=== PATIENT | male | born 1960 | race Caucasian/White ===

== ENCOUNTER 2016-06-07 10:46 | Emergency (ER) | payer OTHER ==
[~2016-06-07] VITALS: Ht 188 cm; Wt 110.0 kg
[~2016-06-07 10:46] MED LIST: BENA25TA8 PO; FENO50TA PO; FOLI1 PO; GABA300 PO; NEUR300C PO; PRIL40CA PO; TAB-TAB PO; THIA100T PO; TOPR100T15 PO
[2016-06-07 10:48] VITALS: BP 193/104; PULSE 81; RESP 14; TEMP 98.3; O2SAT 98
[2016-06-07] MEDS ORDERED: BENA25TA3 PO (11:12)
[2016-06-07] MEDS ORDERED: GABA300C5 PO (11:12)
[2016-06-07] MEDS ORDERED: FENO50TA PO (11:12)
[2016-06-07] MEDS ORDERED: TOPR200T PO (11:12)
[2016-06-07] MEDS ORDERED: SODIUM CHLORIDE 0.9% FLUSH 5 ML FLUSH IVF PRN (11:30)
[2016-06-07] MEDS ORDERED: cloNIDine HCL 0.1 MG TAB PO ONE (11:30)
[2016-06-07 12:10] LABS: AUTOMATED NEUTROPHIL # 2.6 TH/MM3 (1.8-7.7); BASOPHIL % 0.4 % (0.0-2.0); EOSINOPHIL % 0.7 % (0.0-4.0); HEMATOCRIT 42.7 % (39.0-51.0); HEMO FLAGS DIFF FINAL; LYMPH % 19.3 % (9.0-44.0); LYMPHOCYTE # 0.7 TH/MM3 (1.0-4.8); MEAN CELL VOLUME 96.4 FL (80.0-100.0); MEAN CORPUSCULAR HEMOGLOBIN 33.6 PG (27.0-34.0); MEAN CORPUSCULAR HGB CONC 34.9 % (32.0-36.0); MONO % 10.6 % (0.0-8.0); PLATELET COUNT 183 TH/MM3 (150-450); RED BLOOD COUNT 4.43 MIL/MM3 (4.50-5.90); RED CELL DISTRIBUTION WIDTH 12.6 % (11.6-17.2); WHITE BLOOD COUNT 3.7 TH/MM3 (4.0-11.0)
[2016-06-07 12:19] VITALS: BP 176/103; PULSE 78; RESP 18; O2SAT 94; O2SAT 95
[2016-06-07 12:19] LABS: BLOOD, URINE NEG (NEG); GLUCOSE,URINE 70 mg/dL (NEG); KETONE, URINE TRACE mg/dL (NEG); NITRITE,URINE NEG (NEG); PH, URINE 6.5 (5.0-8.5); URINE COLOR YELLOW (YELLW/STRAW)
[2016-06-07 12:20] LABS: APTT (PATIENT) 26.6 SEC (24.3-30.1); INTERNATIONAL NORMALIZED RATIO 0.9 RATIO; PROTHROMBIN TIME - PATIENT 10.2 SEC (9.8-11.6)
[2016-06-07 12:21] LABS: COMMENT (UR) CULT NOT INDICATED; CULTURE IF INDICATED CULT NOT INDICATED
--- NOTE | 2016-06-07 12:24 | PD ---
HPI Chief Complaint: Hypertension Time Seen by Provider: 11:22 Travel History International Travel<30 days: No Contact w/Intl Traveler<30days: No Traveled to known affect area: No History of Present Illness HPI Patient is a 55-year-old male who presents to emergency room with complaints of hypertension. Patient reports that he has history of hypertension, reports that he takes metoprolol 200 mg daily for his blood pressure, reports that he last saw his primary care doctor a few months ago and was started on some thing for his blood pressure. Patient reports that he has been compliant with his medications, patient reports that for the past few days, he has noted that his blood pressure has been high. Patient reports that he does take his blood pressure recent all day and reports that her systolic blood pressure is usually around 150s. Patient reports that when his blood pressures elevated, he feels a pressure behind his eye. Patient reports that he has been feeling pressure behind his left eye for the past few days. Patient denies any vision changes or any blurry vision at this time. Patient denies any chest pain or shortness of breath. Patient denies any recent illness other than a URI. Patient is not on any [id number]-fnoaxyl medications at this time. Patient reports that he has been compliant with his medications. PFSH Past Medical History Asthma: Yes Anxiety: No Depression: No Cardiovascular Problems: Yes High Cholesterol: Yes GERD: Yes Hypertension: Yes Neurologic: Yes (NEUROPATHY) Respiratory: Yes Seizures: Yes () Past Surgical History Other Surgery: Yes (BONE SPURS REMOVED, FATTY TUMOR REMOVAL HEAD) Social History Alcohol Use: Yes (20 BEERS DAILY) Tobacco Use: Yes (CHEW) Substance Use: Yes Allergies-Medications (Allergen,Severity, Reaction): Coded Allergies: No Known Allergies (Unverified , 02/29/16) Reported Meds & Prescriptions Reported Meds & Active Scripts Active Norvasc (Amlodipine Besylate) 5 Mg Tab 5 Mg PO DAILY Reported Toprol XL (Metoprolol Succinate) 200 Mg Tab 200 Mg PO DAILY Gabapentin 300 Mg Cap 300 Mg PO BID Tricor (Fenofibrate) 145 Mg Tab 145 Mg PO DAILY Takw with food. Benadryl Allergy (Diphenhydramine HCl) 25 Mg Tab 25 Mg PO Q6H PRN Review of Systems General / Constitutional: No: Fever Eyes: No: Visual changes HENT: No: Headaches Cardiovascular: No: Chest Pain or Discomfort Respiratory: No: Shortness of Breath Gastrointestinal: No: Abdominal Pain Genitourinary: No: Dysuria Musculoskeletal: No: Pain Skin: No Rash Neurologic: No: Weakness Psychiatric: No: Depression Endocrine: No: Polydipsia Hematologic/Lymphatic: No: Easy Bruising Physical Exam Narrative GENERAL: No acute distress, nontoxic SKIN: Warm and dry. HEAD: Atraumatic. Normocephalic. EYES: Pupils equal and round. No scleral icterus. No injection or drainage. ENT: No nasal bleeding or discharge. Mucous membranes pink and moist. NECK: Trachea midline. No JVD. CARDIOVASCULAR: Regular rate and rhythm. No murmur appreciated. RESPIRATORY: No accessory muscle use. Clear to auscultation. Breath sounds equal bilaterally. GASTROINTESTINAL: Abdomen soft, non-tender, nondistended. Hepatic and splenic margins not palpable. MUSCULOSKELETAL: No obvious deformities. No clubbing. No cyanosis. No edema. NEUROLOGICAL: Awake and alert. No obvious cranial nerve deficits. Motor grossly within normal limits. Normal speech. Cranial nerves II-12 grossly intact with no deficits PSYCHIATRIC: Appropriate mood and affect; insight and judgment normal. Data Data Last Documented VS Vital Signs Date Time Temp Pulse Resp B/P Pulse Ox O2 Delivery O2 Flow Rate FiO2 06/07/16 12:58 77 18 165/99 94 Room Air 06/07/16 10:48 98.3 Orders Electrocardiogram (06/07/16 11:23) Complete Blood Count With Diff (06/07/16 11:23) Comprehensive Metabolic Panel (06/07/16 11:23) Prothrombin Time / Inr (Pt) (06/07/16 11:23) Act Partial Throm Time (Ptt) (06/07/16 11:23) Ecg Monitoring (06/07/16 11:23) Iv Access Insert/Monitor (06/07/16 11:23) Oximetry (06/07/16 11:23) Sodium Chloride 0.9% Flush (Ns Flush) (06/07/16 11:30) Urinalysis - C+S If Indicated (06/07/16 11:23) Clonidine (Catapres) (06/07/16 11:30) Labs Laboratory Tests Test 06/07/16 11:50 White Blood Count 3.7 TH/MM3 Red Blood Count 4.43 MIL/MM3 Hemoglobin 14.9 GM/DL Hematocrit 42.7 % Mean Corpuscular Volume 96.4 FL Mean Corpuscular Hemoglobin 33.6 PG Mean Corpuscular Hemoglobin 34.9 % Concent Red Cell Distribution Width 12.6 % Platelet Count 183 TH/MM3 Mean Platelet Volume 7.7 FL Neutrophils (%) (Auto) 69.0 % Lymphocytes (%) (Auto) 19.3 % Monocytes (%) (Auto) 10.6 % Eosinophils (%) (Auto) 0.7 % Basophils (%) (Auto) 0.4 % Neutrophils # (Auto) 2.6 TH/MM3 Lymphocytes # (Auto) 0.7 TH/MM3 Monocytes # (Auto) 0.4 TH/MM3 Eosinophils # (Auto) 0.0 TH/MM3 Basophils # (Auto) 0.0 TH/MM3 CBC Comment DIFF FINAL Differential Comment Prothrombin Time 10.2 SEC Prothromb Time International 0.9 RATIO Ratio Activated Partial 26.6 SEC Thromboplast Time Urine Color YELLOW Urine Turbidity CLEAR Urine pH 6.5 Urine Specific [place] 1.014 Urine Protein NEG mg/dL Urine Glucose (UA) 70 mg/dL Urine Ketones TRACE mg/dL Urine Occult Blood NEG Urine Nitrite NEG Urine Bilirubin NEG Urine Urobilinogen LESS THAN 2.0 MG/DL Urine Leukocyte Esterase NEG Urine RBC 1 /hpf Urine WBC 1 /hpf Microscopic Urinalysis Comment CULT NOT INDICATED Sodium Level 142 MEQ/L Potassium Level 4.0 MEQ/L Chloride Level 104 MEQ/L Carbon Dioxide Level 30.3 MEQ/L Anion Gap 8 MEQ/L Blood Urea Nitrogen 10 MG/DL Creatinine 0.83 MG/DL Estimat Glomerular Filtration 95 ML/MIN Rate Random Glucose 113 MG/DL Calcium Level 8.9 MG/DL Total Bilirubin 0.5 MG/DL Aspartate Amino Transf 65 U/L (AST/SGOT) Alanine Aminotransferase 52 U/L (ALT/SGPT) Alkaline Phosphatase 66 U/L Total Protein 7.4 GM/DL Albumin 3.8 GM/DL [facility] Medical Decision Making Medical Screen Exam Complete: Yes Emergency Medical Condition: Yes Interpretation(s) EKG: NSR at 77bpm, qt/qtc: 380/411, no acute st or t wave changes Vital Signs Date Time Temp Pulse Resp B/P Pulse Ox O2 Delivery O2 Flow Rate FiO2 06/07/16 11:04 80 18 96 Room Air 06/07/16 10:48 98.3 81 14 193/104 98 Room Air Vital Signs Date Time Temp Pulse Resp B/P Pulse Ox O2 Delivery O2 Flow Rate FiO2 06/07/16 11:04 80 18 96 Room Air 06/07/16 10:48 98.3 81 14 193/104 98 Room Air Laboratory Tests Test 06/07/16 11:50 White Blood Count 3.7 TH/MM3 (4.0-11.0) Red Blood Count 4.43 MIL/MM3 (4.50-5.90) Hemoglobin 14.9 GM/DL (13.0-17.0) Hematocrit 42.7 % (39.0-51.0) Mean Corpuscular Volume 96.4 FL (80.0-100.0) Mean Corpuscular Hemoglobin 33.6 PG (27.0-34.0) Mean Corpuscular Hemoglobin 34.9 % Concent (32.0-36.0) Red Cell Distribution Width 12.6 % (11.6-17.2) Platelet Count 183 TH/MM3 (150-450) Mean Platelet Volume 7.7 FL (7.0-11.0) Neutrophils (%) (Auto) 69.0 % (16.0-70.0) Lymphocytes (%) (Auto) 19.3 % (9.0-44.0) Monocytes (%) (Auto) 10.6 % (0.0-8.0) Eosinophils (%) (Auto) 0.7 % (0.0-4.0) Basophils (%) (Auto) 0.4 % (0.0-2.0) Neutrophils # (Auto) 2.6 TH/MM3 (1.8-7.7) Lymphocytes # (Auto) 0.7 TH/MM3 (1.0-4.8) Monocytes # (Auto) 0.4 TH/MM3 (0-0.9) Eosinophils # (Auto) 0.0 TH/MM3 (0-0.4) Basophils # (Auto) 0.0 TH/MM3 (0-0.2) CBC Comment DIFF FINAL Differential Comment Differential Diagnosis Accelerated Hypertension, URI, electrolyte abnormality Narrative Course Patient is a 55-year-old male who presents to emergency room with high blood pressure. Patient notes that his blood pressure has been higher than normal since yesterday. Patient reports that every time his blood pressure is high, he has increased pressure behind his eye. Patient has been compliant with his medications, reports that he called his primary care doctor and his next appointment is in a month. Patient with normal neurological exam at this time, cleaning under 2-12 grossly intact with no neuro deficits. Plan to obtain CBC, BMP, UA and evaluate for end organ damage. Will give a dose of clonidine at this time. Ultimately, plan to have patient follow up with his primary care doctor and will start him on a new antihypertensive All labs and all studies reviewed patient in detail including all findings. bp now 165/99, pt with no c/o and is feeling "well" case reviewed with Dr Castelan (pt's pcp), request that be started on norvasc 5mg daily, pt is to follow up in the office tomorrow morning Diagnosis Primary Impression: Hypertension Qualified Code: I10 - Essential hypertension Patient Instructions: General Instructions Med/Other Pt SpecificInfo: Prescription(s) given Scripts Amlodipine (Norvasc)5 Mg Tab5 Mg PO DAILY #30 TAB Ref 0 Prov:Breonna Clarke DO 06/07/16 Disposition: 01 DISCHARGE HOME Condition: Stable Breonna Clarke DO Jun 07, 2016 12:24
[2016-06-07 12:33] LABS: ALKALINE PHOSPHATASE 66 U/L (45-117); TOTAL BILIRUBIN ADULT 0.5 MG/DL (0.2-1.0)
[2016-06-07 12:46] LABS: ALT (GPT) 52 U/L (12-78); ANION GAP 8 MEQ/L (5-15); AST (GOT) 65 U/L (15-37); BICARBONATE 30.3 MEQ/L (21.0-32.0); BLOOD UREA NITROGEN 10 MG/DL (7-18); CHLORIDE 104 MEQ/L (98-107); GLOMERULAR FILTRATION RATE 95 ML/MIN (>89); SODIUM (NA) 142 MEQ/L (136-145)
[2016-06-07 12:58] VITALS: BP 165/99; PULSE 77; RESP 18; O2SAT 94
[2016-06-07] MEDS ORDERED: AMLO5 PO (13:18)
--- NOTE | 2016-06-08 11:31 | EKG ---
Date Performed: 06/07/2016 Time Performed: 12:26:50 PTAGE: 55 years EKG: Sinus rhythm POSSIBLE RIGHT VENTRICULAR CONDUCTION DELAY Compared to previous tracing, patient is no longer in at rial flutter. BORDERLINE ECG PREVIOUS TRACING : 02/29/2016 15.46 DOCTOR: Declan Koenig Interpretating Date/Time 06/08/2016 11:29:33
== END 2016-06-07 13:40 | disposition home or self-care (01) ==
LOC: NEPC 10:46
DX: I10 Essential (primary) hypertension (principal); R94.31 Abnormal electrocardiogram [ECG] [EKG]; R51 Headache; J45.909 Unspecified asthma, uncomplicated; E78.00 Pure hypercholesterolemia, unspecified; K21.9 Gastro-esophageal reflux disease without esophagitis; Z72.0 Tobacco use; Z79.899 Other long term (current) drug therapy
CPT/HCPCS: 80053; 81001; 85025; 85610; 85730; 93005

== ENCOUNTER 2016-12-26 06:15 | Observation (INO) | payer OTHER ==
[~2016-12-26] VITALS: Ht 188 cm; Wt 113.6 kg
[2016-12-26] VITALS (7 sets, daily range): BP systolic 86–134; BP diastolic 52–75; PULSE 80–96; RESP 15–20; TEMP 98.8–100.1; O2SAT 94–99
[~2016-12-26 06:15] MED LIST changes: +AMLO5 PO; +BENA25TA3 PO; -BENA25TA8 PO; -FOLI1 PO; -GABA300 PO; +GABA300C5 PO; -NEUR300C PO; -PRIL40CA PO; -TAB-TAB PO; -THIA100T PO; -TOPR100T15 PO; +TOPR200T PO
[2016-12-26] MEDS ORDERED: DIPH25CA PO (06:47)
[2016-12-26] MEDS ORDERED: ATOR10TA15 PO (06:47)
[2016-12-26] MEDS ORDERED: GABA600T PO (06:47)
[2016-12-26] MEDS ORDERED: PROP1CAP3 PO (06:47)
[2016-12-26] MEDS ORDERED: ONDANSETRON HCL 4 MG/2 ML VIAL IV ONE (07:00)
[2016-12-26] MEDS: THIAMINE INJ 100 MG in SODIUM CHLORIDE 0.9% INJ 100 ML IV ONE ×2 (07:00→07:54)
[2016-12-26] MEDS ORDERED: SODIUM CHLOR 0.9% 1000 ML INJ 1,000 ML IV ONE (07:00)
--- NOTE | 2016-12-26 07:11 | PD ---
HPI Chief Complaint: General Weakness Time Seen by Provider: 06:37 Travel History International Travel<30 days: No Contact w/Intl Traveler<30days: No Traveled to known affect area: No History of Present Illness HPI The patient is a 56 year old male who presents to the [facility] emergency department with a history of palpitations, lightheaded sensation, generalized weakness, unsteadiness on his feet that he reports began on Sunday. He reports that he had family visiting yesterday and also drink less alcohol than usual. He reports that he normally drinks 20 beers a day, however yesterday he only drank 10. The patient denies having any chest pain or chest pressure. He denies having any shortness of breath. He does however report having nausea with vomiting 1 yesterday morning. He denies having any diarrhea. He reports he last moved his bowels yesterday. The patient reports that he does have a history of atrial fibrillation. He was seen as an outpatient by ball truing machine operator that he cannot recall the name of last year. He reports that he was told to stop drinking alcohol, however he has no intention of stopping drinking. He reports that he was started on a baby aspirin daily. He has not been consistently taking this, however he did take a baby aspirin on Sunday. The patient reports that he has been taking his metoprolol 200 mg once a day every day. He reports that he did take it today. On review of systems, the patient denies any recent fevers, cough, congestion, neck pain, chest pain, shortness of breath, abdominal pain, urinary symptoms, one-sided weakness, slurred speech, vision change, difficulty with word finding ability, or facial droop. The patient does report having dizziness. The patient's also reports that earlier this morning he seemed to be starting to hallucinate. The patient has had a history of seizure activity related to alcohol use. [facility] Past Medical History Narrative Medical The patient's past medical history is significant for asthma, seizure related to alcohol use, history of daily alcohol abuse of 20 beers per day, history of atrial fibrillation, acid reflux, hyperlipidemia, hypertension. Asthma: Yes Anxiety: No Depression: No Cardiovascular Problems: Yes High Cholesterol: Yes GERD: Yes Hypertension: Yes Neurologic: Yes (NEUROPATHY) Respiratory: Yes Seizures: Yes () Past Surgical History Narrative Surgical The patient's past surgical history is significant for bone spur resection, fatty tumor removal. Other Surgery: Yes (BONE SPURS REMOVED, FATTY TUMOR REMOVAL HEAD) Social History Alcohol Use: Yes (20 BEERS DAILY) Tobacco Use: Yes (CHEW) Substance Use: Yes Allergies-Medications (Allergen,Severity, Reaction): Coded Allergies: No Known Allergies (Unverified , 02/29/16) Reported Meds & Prescriptions Reported Meds & Active Scripts Active Reported Inderal XL 24 HR (Propranolol ER 24 HR) 80 Mg Cap 80 Mg PO DAILY Diphenhydramine (Diphenhydramine HCl) 25 Mg Cap 25 Mg PO Q6H PRN Atorvastatin (Atorvastatin Calcium) 10 Mg Tab 10 Mg PO HS Gabapentin 600 Mg Tab 600 Mg PO BID Toprol XL (Metoprolol Succinate) 200 Mg Tab 200 Mg PO DAILY Review of Systems Except as stated in HPI: all other systems reviewed are Neg General / Constitutional: No: Fever Eyes: No: Visual changes HENT: Positive: Lightheadedness, No: Headaches Cardiovascular: Positive: Palpitations, Tachycardia, No: Chest Pain or Discomfort Respiratory: No: Shortness of Breath Gastrointestinal: No: Abdominal Pain Genitourinary: No: Dysuria Musculoskeletal: No: Pain Skin: No Rash Neurologic: Positive: Weakness (generalized weakness), Change in Mentation, No : Focal Abnormalities, Slurred Speech, Sensory Disturbance Psychiatric: No: Depression Endocrine: No: Polydipsia Hematologic/Lymphatic: No: Easy Bruising Physical Exam Narrative General: The patient is a well-developed well-nourished male in no acute distress. Head and Neck exam: Head is normocephalic atraumatic. Eyes: EOMI, pupils are equal round and reactive to light. Nose: Midline septum with pink mucous membranes Mouth: Dentition unremarkable. Moist mucus membranes. Posterior oropharynx is not erythematous. No tonsillar hypertrophy. Uvula midline. Airway patent. Neck: No palpable lymphadenopathy. No nuchal rigidity. No thyromegaly. Cardiovascular: Irregularly irregular with a rate that ranges from the 1 teens up into the 140s without murmurs, gallops, or rubs. The patient intermittently has a pulse deficit to the extremity during simultaneous auscultation and palpation of his radial artery Lungs: Clear to auscultation bilaterally. No wheezes, rhonchi, or rales. Abdomen: Soft, without tenderness to palpation in all 4 quadrants of the abdomen. No guarding, rebound, or rigidity. Normal bowel sounds are audible. No tenderness on palpation of McBurney's point. Negative [place] sign. Extremities: No clubbing, cyanosis, or edema. 2+ pulses in all 4 extremities. No calf tenderness on palpation. Back: No costovertebral angle tenderness to palpation. Neurologic Exam: Grossly nonfocal. Slightly tremulous on examination. Skin Exam: No rash noted. Intact skin that is warm and dry. Data Data Last Documented VS Vital Signs Date Time Temp Pulse Resp B/P Pulse Ox O2 Delivery O2 Flow Rate FiO2 12/26/16 06:24 98.8 80 16 86/ 99 Room Air Orders Electrocardiogram (12/26/16 06:49) Complete Blood Count With Diff (12/26/16 06:49) Comprehensive Metabolic Panel (12/26/16 06:49) Creatine Kinase (Cpk) (12/26/16 06:49) Ckmb (Isoenzyme) Profile (12/26/16 06:49) Troponin I (12/26/16 06:49) B-Type Natriuretic Peptide (12/26/16 06:49) Prothrombin Time / Inr (Pt) (12/26/16 06:49) Act Partial Throm Time (Ptt) (12/26/16 06:49) Lipase (12/26/16 06:49) Urinalysis - C+S If Indicated (12/26/16 06:49) Magnesium (Mg) (12/26/16 06:49) Thyroid Stimulating Hormone (12/26/16 06:49) Chest, Single Ap (12/26/16 06:49) Iv Access Insert/Monitor (12/26/16 06:49) Ecg Monitoring (12/26/16 06:49) Oximetry (12/26/16 06:49) Drug Screen, Random Urine (12/26/16 06:49) Alcohol (Ethanol) (12/26/16 06:49) Sodium Chlor 0.9% 1000 Ml Inj (Ns 1000 M (12/26/16 07:00) Thiamine Inj (Thiamine Inj) (12/26/16 07:00) Ondansetron Inj (Zofran Inj) (12/26/16 07:00) MDM Medical Decision Making Medical Screen Exam Complete: Yes Emergency Medical Condition: Yes Medical Record Reviewed: Yes Differential Diagnosis A. fib with RVR, versus SVT, versus sinus tach related to dehydration, versus sinus tach related to alcohol withdrawal Narrative Course During the course of the patients emergency department visit, the patients history, examination, and differential diagnosis were reviewed with the patient. The patient had IV access obtained and blood work sent for analysis. The patient was placed on a aircraft mechanic structures with oximetry and blood pressure monitoring. An ECG was done on arrival. The patient's ECG reveals A. fib with RVR heart rate of 122, incomplete right bundle branch block, QRS duration is 100 ms, QTC 392 ms, no acute ST segment elevation, T waves are inverted in lead 3, aVF. The patient was initially provided normal saline 1 L IV fluid bolus, Zofran 4 mg IV. The patient's initial blood pressure systolic was 98. The patient will be reassessed for improvement in his blood pressure. The patient will also likely need to be started on Cardizem for rate control. The patients case will be checked out to the oncoming emergency physician to disposition based on the conclusion of the patient's workup. I anticipate that the patient will be admitted to the hospital. I did discuss this with the patient. He is agreeable with that plan. Again, the patient reports that he has no intention to quit drinking alcohol. Diagnosis Primary Impression: Atrial fibrillation with RVR Admitting Information Admitting Physician Requests: Disha Cole MD Dec 26, 2016 07:11
[2016-12-26 07:17] LABS: AUTOMATED NEUTROPHIL # 5.7 TH/MM3 (1.8-7.7); BASOPHIL % 0.3 % (0.0-2.0); EOSINOPHIL % 0.7 % (0.0-4.0); HEMATOCRIT 41.4 % (39.0-51.0); HEMO FLAGS DIFF FINAL; LYMPH % 11.5 % (9.0-44.0); LYMPHOCYTE # 0.8 TH/MM3 (1.0-4.8); MEAN CELL VOLUME 98.2 FL (80.0-100.0); MEAN CORPUSCULAR HEMOGLOBIN 34.8 PG (27.0-34.0); MEAN CORPUSCULAR HGB CONC 35.4 % (32.0-36.0); MONO % 6.5 % (0.0-8.0); PLATELET COUNT 151 TH/MM3 (150-450); RED BLOOD COUNT 4.21 MIL/MM3 (4.50-5.90); RED CELL DISTRIBUTION WIDTH 12.4 % (11.6-17.2); WHITE BLOOD COUNT 7.1 TH/MM3 (4.0-11.0)
[2016-12-26 07:28] LABS: PROTHROMBIN TIME - PATIENT 10.6 SEC (9.8-11.6)
[2016-12-26 07:32] LABS: ALT (GPT) 33 U/L (12-78); ANION GAP 11 MEQ/L (5-15); AST (GOT) 23 U/L (15-37); BICARBONATE 27.3 MEQ/L (21.0-32.0); BLOOD UREA NITROGEN 11 MG/DL (7-18); CHLORIDE 97 MEQ/L (98-107); GLOMERULAR FILTRATION RATE 56 ML/MIN (>89); MAGNESIUM 1.6 MG/DL (1.5-2.5); POTASSIUM 3.6 MEQ/L (3.5-5.1); SODIUM (NA) 135 MEQ/L (136-145)
[2016-12-26 07:41] LABS: ALKALINE PHOSPHATASE 55 U/L (45-117); TOTAL BILIRUBIN ADULT 1.7 MG/DL (0.2-1.0)
[2016-12-26 07:42] LABS: CREATINE KINASE 97 U/L (39-308)
--- NOTE | 2016-12-26 07:55 | RADRPT ---
EXAM DATE/TIME: 12/26/2016 07:11 [place] COMPARISON: CHEST SINGLE AP, February 29, 2016, 16:02. INDICATIONS : Shortness of breath. MEDICAL HISTORY : Hypertension. SURGICAL HISTORY : Discectomy, thoracic. ENCOUNTER: Initial ACUITY: 1 day PAIN SCORE: 0/10 LOCATION: Bilateral chest FINDINGS: Portable AP view of the chest demonstrates a normal-sized cardiac silhouette. No effusion, consolidat ion, or pneumothorax is visualized. The bones and soft tissues demonstrate no acute abnormality. Part ially visualized lumbar spine hardware is present. CONCLUSION: No acute cardiopulmonary abnormality is identified. Jeffrey Calabrese MD on December 26, 2016 at 7:53 Board Certified Radiologist. This report was verified electronically.
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
--- NOTE | 2016-12-26 08:55 | HHI.HP ---
HPI Service [facility] Hospitalists Primary Care Physician Jeffrey Castelan M.D. Admission Diagnosis Pre-syncope, Dehydration, Alcohol withdrawal. Diagnoses: Chief Complaint: hallucinations Travel History International Travel<30 Days: No Contact w/Intl Traveler <30 Da: No Traveled to Known Affected Are: No History of Present Illness Written by Sophia Barahona, acting as scribe for Dr. Mancera on 12/26/16 at 09 :36. The patient is a 56 year old male with a past medical history which includes Atrial Fibrillation, ETOH abuse and nephropathy. Patient presents to the [facility] today because he was hallucinating which started about 0500 today. Patient describes seeing a mesh that turned into a, "creepy crawly." Patient also reports that he has had increase frequency in urination associated with the feeling of being unable to fully empty his bladder. Patient reports he normally drinks 20 beers per day but yesterday only had 10 beers because he had family in town. Patient denies having DTs, seizures or hallucinations in the past when he has stopped drinking. Per ER physician note patient's reported patient has been feeling palpitations, lightheaded sensation, generalized weakness, and unsteadiness on his feet since Sunday. Home BP machine showed HR of 140-150's. Upon arrival to ER patient EKG revealed Atrial Fibrillation/Flutter with ventricular rate of 122 bpm. Patient was given 1L fluid bolus after which he converted to SR. Current telemetry shows SR rate in the 80's. Patient also reports he has been compliant with taking his metoprolol 200 mg daily but has not been taking the aspirin 81 mg. Patient also reports history of seizures related to ETOH abuse. Patient denies chest pain, chest pressure, N/V/D/C, fever unilateral weakness, slurred speech, vision change, difficulty with word finding ability, or facial droop. Review of Systems Except as stated in HPI: all other systems reviewed are Neg Past Family Social History Past Medical History Alcoholism peripheral Neuropathy Atrial Fibrillation Past Surgical History L1 vertebrae reconstructed with rib 08/2008 left tibia repair with hardware placement Reported Medications Inderal XL 24 HR (Propranolol ER 24 HR) 80 Mg Cap 80 Mg PO DAILY Diphenhydramine (Diphenhydramine HCl) 25 Mg Cap 25 Mg PO Q6H PRN Atorvastatin (Atorvastatin Calcium) 10 Mg Tab 10 Mg PO HS Gabapentin 600 Mg Tab 600 Mg PO BID Toprol XL (Metoprolol Succinate) 200 Mg Tab 200 Mg PO DAILY Allergies: Coded Allergies: No Known Allergies (Unverified , 02/29/16) Active Ordered Medications Current Medications Medications (Trade) Dose Ordered Sig/Durga Route Start Time Stop Time Status Last Admin (NS 1000 ml Inj) 1,000 ml @ 100 mls/hr Q10H IV 12/26/16 08:50 (NS Flush) 2 ml UNSCH PRN IV FLUSH 12/26/16 09:00 (NS Flush) 2 ml BID IV FLUSH 12/26/16 09:00 (Zofran Inj) 4 mg Q6H PRN IVP 12/26/16 09:00 (Narcan Inj) 0.4 mg UNSCH PRN IV 12/26/16 09:00 (Laly-Colace) 1 tab BID PO 12/26/16 09:00 (Milk Of Magnesia Liq) 30 ml Q12H PRN PO 12/26/16 09:00 (Senokot) 17.2 mg Q12H PRN PO 12/26/16 09:00 (Dulcolax Supp) 10 mg DAILY PRN RECTAL 12/26/16 09:00 (Lactulose Liq) 30 ml DAILY PRN PO 12/26/16 09:00 (Lipitor) 10 mg HS PO 12/26/16 21:00 (Neurontin) 600 mg BID PO 12/26/16 09:00 (Toprol Xl) 200 mg DAILY PO 12/26/16 09:00 (Romazicon Inj) 0.2 mg Q1M PRN IV PUSH 12/26/16 09:00 (Ativan) 1 mg Q4H PRN PO 12/26/16 09:00 (Ativan Inj) 1 mg Q4H PRN IV PUSH 12/26/16 09:00 (Ativan) 2 mg Q2H PRN PO 12/26/16 09:00 (Ativan Inj) 2 mg Q2H PRN IV PUSH 12/26/16 09:00 (Ativan Inj) 2 mg Q1H PRN IV PUSH 12/26/16 09:00 (Ativan Inj) 2 mg Q15M PRN IV PUSH 12/26/16 09:00 Family History Dad, sister, brother - Diabetes mellitus. Social History Quit smoking 10 years ago. But he continues to chew tobacco. ETOH use Drinks 10 - 20 beers a day. No current desire to quit drinking alcohol. Denies illicit drug use Physical Exam Vital Signs Vital Signs Date Time Temp Pulse Resp B/P Pulse Ox O2 Delivery O2 Flow Rate FiO2 12/26/16 08:26 80 15 100/52 99 Room Air 12/26/16 06:24 98.8 80 16 86/ 99 Room Air Physical Exam GENERAL: This is a well-nourished, well-developed patient, appears anxious SKIN: No rashes, ecchymoses or lesions. Cool and dry. HEAD: Atraumatic. Normocephalic. No temporal or scalp tenderness. EYES: Pupils equal round and reactive. Extraocular motions intact. No scleral icterus. No injection or drainage. CARDIOVASCULAR: Regular rate and rhythm without murmurs, gallops, or rubs. RESPIRATORY: Clear to auscultation. Breath sounds equal bilaterally. No wheezes , rales, or rhonchi. GASTROINTESTINAL: Abdomen soft, non-tender, nondistended. No hepato-splenomegaly , or palpable masses. No guarding. MUSCULOSKELETAL: Extremities without clubbing, cyanosis, or edema. No joint tenderness, effusion, or edema noted. No calf tenderness. Negative Homans sign bilaterally. NEUROLOGICAL: Awake and alert. no focal deficits noted. Motor and sensory grossly within normal limits. Five out of 5 muscle strength in all muscle groups. Anxious in appearance Laboratory Laboratory Tests Test 12/26/16 07:00 White Blood Count 7.1 Red Blood Count 4.21 Hemoglobin 14.7 Hematocrit 41.4 Mean Corpuscular Volume 98.2 Mean Corpuscular Hemoglobin 34.8 Mean Corpuscular Hemoglobin 35.4 Concent Red Cell Distribution Width 12.4 Platelet Count 151 Mean Platelet Volume 7.8 Neutrophils (%) (Auto) 81.0 Lymphocytes (%) (Auto) 11.5 Monocytes (%) (Auto) 6.5 Eosinophils (%) (Auto) 0.7 Basophils (%) (Auto) 0.3 Neutrophils # (Auto) 5.7 Lymphocytes # (Auto) 0.8 Monocytes # (Auto) 0.5 Eosinophils # (Auto) 0.0 Basophils # (Auto) 0.0 CBC Comment DIFF FINAL Differential Comment Prothrombin Time 10.6 Prothromb Time International 1.0 Ratio Activated Partial 31.0 Thromboplast Time Sodium Level 135 Potassium Level 3.6 Chloride Level 97 Carbon Dioxide Level 27.3 Anion Gap 11 Blood Urea Nitrogen 11 Creatinine 1.32 Estimat Glomerular Filtration 56 Rate Random Glucose 180 Calcium Level 9.3 Magnesium Level 1.6 Total Bilirubin 1.7 Aspartate Amino Transf 23 (AST/SGOT) Alanine Aminotransferase 33 (ALT/SGPT) Alkaline Phosphatase 55 Total Creatine Kinase 97 Troponin I LESS THAN 0.02 B-Type Natriuretic Peptide 382 Total Protein 7.3 Albumin 3.4 Lipase 139 Thyroid Stimulating Hormone 1.510 3rd Gen Ethyl Alcohol Level LESS THAN 3 Result Diagram: 12/26/16 0700 12/26/16 0700 Imaging Last Impressions Chest X-Ray 12/26/16 0649 Signed Impressions: Service Date/Time: Monday, December 26, 2016 07:11 - CONCLUSION: No acute cardiopulmonary abnormality is identified. Jeffrey Calabrese MD Assessment and Plan Problem List: (1) Atrial flutter with rapid ventricular response ICD Code: I48.92 Status: Acute (2) Alcohol withdrawal delirium, acute, hypoactive ICD Code: F10.231 Status: Acute (3) Dehydration ICD Code: E86.0 Status: Acute Assessment and Plan The patient is a 56 year old male with a past medical history which includes ETOH abuse and nephropathy. Patient presents to the [facility] today because he was hallucinating which started about 0500 today. Patient reports he normally drinks 20 beers per day but yesterday only had 10 beers because he had family in town. Patient denies having DTs, seizures or hallucinations in the past when he has stopped drinking. Upon arrival to ER patient EKG revealed Atrial Fibrillation/Flutter with ventricular rate of 122 bpm. Patient was given 1L fluid bolus after which he converted to SR. Atrial fibrillation/flutter with rapid ventricular response dehydration Continuous telemetry Continue home metoprolol succinate 200 mg daily Consult cardiology- patient has seen Dr. Greene in the past NS at 100 ml/h ETOH abuse with withdraw CIWA protocol with thiamine Patient counselled encouraged to abstain- patient reports he does not want to quit drinking at this time Peripheral neuropathy Continue gabapentin home dose DVT prophylaxis with SCDs Attending Statement This note was transcribed by scribe [Sophia Barahona]. I, Dr. Panchito Mancera personally performed the history, physical exam, and medical decision making; and confirmed the accuracy of the information in the transcribed note. Authenticated by Dr. Panchito Mancera on 12/26/16 at 23:55. Sophia Barahona Dec 26, 2016 08:55 Panchito Mancera MD Dec 26, 2016 23:55
[2016-12-26] MEDS ORDERED: NALOXONE HCL 0.4 MG/ML AMP IV PRN (09:00)
[2016-12-26] MEDS: GABAPENTIN 300 MG CAP PO SCH ×2 (09:00→20:36)
[2016-12-26] MEDS ORDERED: LORazepam 1 MG TAB PO PRN (09:00)
[2016-12-26] MEDS ORDERED: MAGNESIUM HYDROXIDE SUSP 30 ML CUP PO PRN (09:00)
[2016-12-26] MEDS: METOPROLOL SUCCINATE 50 MG EXTENDED RELEASE TAB PO SCH (09:00)
[2016-12-26] MEDS ORDERED: SENNOSIDES 8.6 MG TAB PO PRN (09:00)
[2016-12-26] MEDS ORDERED: LORazepam 2 MG TAB PO PRN (09:00)
[2016-12-26] MEDS ORDERED: LORazepam 2 MG/ML VIAL IV PUSH PRN ×4 (09:00)
[2016-12-26] MEDS ORDERED: FLUMAZENIL 0.5 MG/5 ML VIAL IV PUSH PRN (09:00)
[2016-12-26] MEDS ORDERED: LACTULOSE SYRUP 20 GM/30 ML CUP PO PRN (09:00)
[2016-12-26] MEDS ORDERED: ONDANSETRON HCL 4 MG/2 ML VIAL IVP PRN (09:00)
[2016-12-26] MEDS: DOCUSATE SODIUM 50 MG/SENNA 8.6 MG TAB PO SCH ×2 (09:00→20:35)
[2016-12-26] MEDS ORDERED: BISACODYL 10 MG SUPP RECTAL PRN (09:00)
[2016-12-26] MEDS ORDERED: SODIUM CHLORIDE 0.9% FLUSH 10 ML FLUSH IV FLUSH PRN (09:00)
[2016-12-26 09:25] LABS: BACTERIA, URINE MANY /hpf; BLOOD, URINE TRACE (NEG); COMMENT (UR) CULTURE INDICATED; CULTURE IF INDICATED CULTURE INDICATED; GLUCOSE,URINE NEG (NEG); KETONE, URINE NEG (NEG); PH, URINE 6.5 (5.0-8.5); URINE COLOR YELLOW (YELLW/STRAW)
[2016-12-26 09:26] LABS: NITRITE,URINE POS (NEG)
[2016-12-26 09:28] LABS: AMPHETAMINE, URINE NEG (NEG); BARBITURATES, URINE NEG (NEG); COCAINE, URINE NEG (NEG)
[2016-12-26] MEDS: SODIUM CHLORIDE 0.9% FLUSH 10 ML FLUSH IV FLUSH SCH ×2 (10:15→20:36)
[2016-12-26] MEDS: SODIUM CHLOR 0.9% 1000 ML INJ 1,000 ML IV SCH ×2 (12:27→20:40)
--- NOTE | 2016-12-26 14:04 | PD.CONS ---
HPI Service Cardiology Physicians Consult Requested By Sabrina Barahona Reason for Consult afib RVR Primary Care Physician Jeffrey Castelan M.D. History of Present Illness The patient is a 56 year old male known to our practice with a cardiac history of atrial flutter, tobacco use and HTN. Other notable history is very high alcohol intake. The patient presented to the hospital due to high HR recorded on his home BP cuff associated with feeling lightheaded and having hallucinations. The patient denies recent decrease of alcohol intake. He usually drinks 20 beers per day. The patient denies missing a metoprolol dose. On admission, the patient was noted be atrial flutter with high ventricular rate. The patient received a NS bolus which decreased his rate to the 80s and on evaluation in the ER he had converted to NSR. He denies CP, SOB or edema. He has tremors which he says he had every morning which go away after his first 1- 3 beers during the day (Ria Deluna) Review of Systems Consitutional: DENIES: Fatigue, Fever, Chills, Weight gain, Weight loss Eyes: DENIES: Amaurosis Fugax, Change in vision HEENT: COMPLAINS OF: Lightheadedness, DENIES: Change in hearing Respiratory: DENIES: See HPI, Cough, Snoring, Shortness of breath, Wheezing, Sputum production Cardiovascular: COMPLAINS OF: Tachycardia, DENIES: See HPI, Chest pain, Palpitations, Syncope Gastrointestinal: DENIES: Nausea, Vomiting, Change in bowel habits, Reflux, Bloody stools, Melena Genitourinary: DENIES: Urinary incontinence, Difficulty voiding Integumentary: DENIES: Rash Neurologic: DENIES: Tingling or numbness, Memory problems, Poor Balance, Stroke symptoms Musculoskeletal: DENIES: Joint pain, Muscle pain, Limited range of motion, Back pain Psychiatric: DENIES: Anxiety, Depression, Sleep disturbances Hematologic: DENIES: Bruising tendencies, Bleeding tendencies Endocrine: DENIES: Weight gain, Weight loss, Thyroid disease (Ria Deluna ) Past Family Social History Allergies: Coded Allergies: No Known Allergies (Unverified , 02/29/16) Past Medical History atrial flutter HTN HLD Tobacco abuse Alcohol abuse asthma GERD Past Surgical History bone spur removed l4-l5 repair Reported Medications Reported Meds & Active Scripts Active Reported Inderal XL 24 HR (Propranolol ER 24 HR) 80 Mg Cap 80 Mg PO DAILY Diphenhydramine (Diphenhydramine HCl) 25 Mg Cap 25 Mg PO Q6H PRN Atorvastatin (Atorvastatin Calcium) 10 Mg Tab 10 Mg PO HS Gabapentin 600 Mg Tab 600 Mg PO BID Toprol XL (Metoprolol Succinate) 200 Mg Tab 200 Mg PO DAILY Active Ordered Medications Current Medications Medications (Trade) Dose Ordered Sig/Durga Route Start Time Stop Time Status Last Admin (NS 1000 ml Inj) 1,000 ml @ 100 mls/hr Q10H IV 12/26/16 08:50 12/26/16 12:27 (NS Flush) 2 ml UNSCH PRN IV FLUSH 12/26/16 09:00 (NS Flush) 2 ml BID IV FLUSH 12/26/16 09:00 12/26/16 10:15 (Zofran Inj) 4 mg Q6H PRN IVP 12/26/16 09:00 (Narcan Inj) 0.4 mg UNSCH PRN IV 12/26/16 09:00 (Laly-Colace) 1 tab BID PO 12/26/16 09:00 (Milk Of Magnesia Liq) 30 ml Q12H PRN PO 12/26/16 09:00 (Senokot) 17.2 mg Q12H PRN PO 12/26/16 09:00 (Dulcolax Supp) 10 mg DAILY PRN RECTAL 12/26/16 09:00 (Lactulose Liq) 30 ml DAILY PRN PO 12/26/16 09:00 (Lipitor) 10 mg HS PO 12/26/16 21:00 (Neurontin) 600 mg BID PO 12/26/16 09:00 (Toprol Xl) 200 mg DAILY PO 12/26/16 09:00 (Romazicon Inj) 0.2 mg Q1M PRN IV PUSH 12/26/16 09:00 (Ativan) 1 mg Q4H PRN PO 12/26/16 09:00 (Ativan Inj) 1 mg Q4H PRN IV PUSH 12/26/16 09:00 (Ativan) 2 mg Q2H PRN PO 12/26/16 09:00 (Ativan Inj) 2 mg Q2H PRN IV PUSH 12/26/16 09:00 (Ativan Inj) 2 mg Q1H PRN IV PUSH 12/26/16 09:00 (Ativan Inj) 2 mg Q15M PRN IV PUSH 12/26/16 09:00 Family History non contributory Social History tobacco abuse alcohol abuse (Ria Deluna) Physical Exam Vital Signs Vital Signs Date Time Temp Pulse Resp B/P Pulse Ox O2 Delivery O2 Flow Rate FiO2 12/26/16 10:44 99.3 93 20 109/66 94 12/26/16 08:26 80 15 100/52 99 Room Air 12/26/16 06:24 98.8 80 16 86/ 99 Room Air Physical Exam GENERAL: middle male SKIN: Warm and dry. HEAD: Atraumatic. Normocephalic. EYES: Pupils equal and round. No scleral icterus. No injection or drainage. ENT: No nasal bleeding or discharge. Mucous membranes pink and moist. NECK: Trachea midline. CARDIOVASCULAR: Regular rate and rhythm. RESPIRATORY: No accessory muscle use. Clear to auscultation. Breath sounds equal bilaterally. GASTROINTESTINAL: Abdomen soft, non-tender, nondistended. MUSCULOSKELETAL: Extremities without clubbing, cyanosis, or edema. No obvious deformities. NEUROLOGICAL: Tremors PSYCHIATRIC: Appropriate mood and affect; insight and judgment normal. Laboratory Laboratory Tests Test 12/26/16 12/26/16 07:00 09:10 White Blood Count 7.1 Red Blood Count 4.21 Hemoglobin 14.7 Hematocrit 41.4 Mean Corpuscular Volume 98.2 Mean Corpuscular Hemoglobin 34.8 Mean Corpuscular Hemoglobin 35.4 Concent Red Cell Distribution Width 12.4 Platelet Count 151 Mean Platelet Volume 7.8 Neutrophils (%) (Auto) 81.0 Lymphocytes (%) (Auto) 11.5 Monocytes (%) (Auto) 6.5 Eosinophils (%) (Auto) 0.7 Basophils (%) (Auto) 0.3 Neutrophils # (Auto) 5.7 Lymphocytes # (Auto) 0.8 Monocytes # (Auto) 0.5 Eosinophils # (Auto) 0.0 Basophils # (Auto) 0.0 CBC Comment DIFF FINAL Differential Comment Prothrombin Time 10.6 Prothromb Time International 1.0 Ratio Activated Partial 31.0 Thromboplast Time Sodium Level 135 Potassium Level 3.6 Chloride Level 97 Carbon Dioxide Level 27.3 Anion Gap 11 Blood Urea Nitrogen 11 Creatinine 1.32 Estimat Glomerular Filtration 56 Rate Random Glucose 180 Calcium Level 9.3 Magnesium Level 1.6 Total Bilirubin 1.7 Aspartate Amino Transf 23 (AST/SGOT) Alanine Aminotransferase 33 (ALT/SGPT) Alkaline Phosphatase 55 Total Creatine Kinase 97 Troponin I LESS THAN 0.02 B-Type Natriuretic Peptide 382 Total Protein 7.3 Albumin 3.4 Lipase 139 Thyroid Stimulating Hormone 1.510 3rd Gen Ethyl Alcohol Level LESS THAN 3 Urine Color YELLOW Urine Turbidity HAZY Urine pH 6.5 Urine Specific [place] 1.009 Urine Protein 30 Urine Glucose (UA) NEG Urine Ketones NEG Urine Occult Blood TRACE Urine Nitrite POS Urine Bilirubin NEG Urine Urobilinogen LESS THAN 2.0 Urine Leukocyte Esterase LARGE Urine RBC 5 Urine WBC 143 Urine WBC Clumps MOD Urine Bacteria MANY Microscopic Urinalysis Comment CULTURE INDICATED Urine Opiates Screen NEG Urine Barbiturates Screen NEG Urine Amphetamines Screen NEG Urine Benzodiazepines Screen NEG Urine Cocaine Screen NEG Urine Cannabinoids Screen NEG Date/Time Procedure Status Source Growth 12/26/16 09:10 Urine Culture Received Urine Clean Catch Pending (Ria Deluna) Result Diagram: 12/26/16 0700 12/26/16 0700 Imaging Last 72 hours Impressions Chest X-Ray 12/26/16 0649 Signed Impressions: Service Date/Time: Monday, December 26, 2016 07:11 - CONCLUSION: No acute cardiopulmonary abnormality is identified. Jeffrey Calabrese MD (Ria Deluna) Assessment and Plan Assessment and Plan ASSESSMENT Atrial flutter , CHADSVASC 1 based on HTN. On ASA 81mg . On metoprolol HTN HLD Alcohol abuse Tobacco abuse (chewing) PLAN: Atrial flutter RVR likely aggravated by alcohol intake and dehydration. He converted to NSR. He is clear for discharge from a cardiac standpoint. The patient was seen and evaluated by Dr Greene. (Ria Deluna) Assessment and Plan The exam, history, and the medical decision-making described in the above note were completed with the assistance of the mid-level provider. I reviewed and agree with the findings presented. I attest that I had a [id number] encounter with the patient on the same day, and personally performed and documented my assessment and findings in the medical record. Pt counselled on cutting alcohol use (Janina Greene MD) Ria Deluna Dec 26, 2016 14:04 Janina Greene MD Dec 27, 2016 14:24
--- NOTE | 2016-12-26 15:10 | EKG ---
Date Performed: 12/26/2016 Time Performed: 06:53:49 PTAGE: 56 years EKG: ATRIAL FLUTTER/TACHYCARDIA WITH RAPID VENTRICULAR RESPONSE WITH ABERRANT CONDUCTION OR VENT RICULAR PREMATURE COMPLEXES INCOMPLETE RIGHT BUNDLE BRANCH BLOCK Compared to previous tracing, atrial flutter is new Clinical correlation is recommended ABNORMAL RHYTHM ECG PREVIOUS TRACING : 06/07/2016 12.26 DOCTOR: Mason Freedman Interpretating Date/Time 12/26/2016 15:09:04
[2016-12-26] MEDS ORDERED: diphenhydrAMINE HCL 25 MG CAP PO ONE (20:15)
[2016-12-26] MEDS ORDERED: ATORVASTATIN 10 MG TAB PO SCH (21:00)
[2016-12-27] VITALS: PULSE 84
[2016-12-27 04:01] VITALS: PULSE 84
[2016-12-27 04:05] VITALS: BP 128/78; PULSE 86; RESP 16; TEMP 99.4; O2SAT 96
[2016-12-27] MEDS: SODIUM CHLOR 0.9% 1000 ML INJ 1,000 ML IV SCH (05:36)
[2016-12-27 07:11] VITALS: BP 142/82; PULSE 89; RESP 18; TEMP 98.8; O2SAT 95
[2016-12-27 08:16] LABS: AUTOMATED NEUTROPHIL # 2.9 TH/MM3 (1.8-7.7); BASOPHIL % 0.4 % (0.0-2.0); EOSINOPHIL % 0.5 % (0.0-4.0); HEMATOCRIT 37.3 % (39.0-51.0); HEMO FLAGS DIFF FINAL; LYMPHOCYTE # 0.7 TH/MM3 (1.0-4.8); MEAN CELL VOLUME 99.9 FL (80.0-100.0); MEAN CORPUSCULAR HEMOGLOBIN 34.8 PG (27.0-34.0); MEAN CORPUSCULAR HGB CONC 34.8 % (32.0-36.0); MONO % 14.9 % (0.0-8.0); NEUT % 67.2 % (16.0-70.0); PLATELET COUNT 122 TH/MM3 (150-450); RED BLOOD COUNT 3.74 MIL/MM3 (4.50-5.90); RED CELL DISTRIBUTION WIDTH 12.5 % (11.6-17.2); WHITE BLOOD COUNT 4.3 TH/MM3 (4.0-11.0)
[2016-12-27] MEDS: GABAPENTIN 300 MG CAP PO SCH (08:31)
[2016-12-27] MEDS: METOPROLOL SUCCINATE 50 MG EXTENDED RELEASE TAB PO SCH (08:31)
[2016-12-27] MEDS: DOCUSATE SODIUM 50 MG/SENNA 8.6 MG TAB PO SCH (08:31)
[2016-12-27] MEDS: SODIUM CHLORIDE 0.9% FLUSH 10 ML FLUSH IV FLUSH SCH (08:33)
[2016-12-27 08:40] LABS: ANION GAP 9 MEQ/L (5-15); AST (GOT) 25 U/L (15-37); BICARBONATE 25.1 MEQ/L (21.0-32.0); BLOOD UREA NITROGEN 10 MG/DL (7-18); CHLORIDE 104 MEQ/L (98-107); GLOMERULAR FILTRATION RATE 98 ML/MIN (>89); POTASSIUM 3.1 MEQ/L (3.5-5.1); SODIUM (NA) 138 MEQ/L (136-145)
[2016-12-27 08:45] LABS: ALKALINE PHOSPHATASE 48 U/L (45-117); ALT (GPT) 28 U/L (12-78); TOTAL BILIRUBIN ADULT 1.1 MG/DL (0.2-1.0)
[2016-12-27] MEDS ORDERED: SULF1TAB23 PO (08:47)
--- NOTE | 2016-12-27 08:51 | HHI.PR ---
Subjective Remarks Follow up for Afib with RVR, UTI. Patient is doing well. No chest pain, shortness of breath, fever, chills. He reports dysuria and urinary hesitation for the last 3 weeks. UA is significant for UTI. Objective Vitals Vital Signs Date Time Temp Pulse Resp B/P Pulse Ox O2 Delivery O2 Flow Rate FiO2 12/27/16 07:11 98.8 89 18 142/82 95 12/27/16 04:05 99.4 86 16 128/78 96 12/27/16 04:01 84 12/27/16 00:00 84 12/26/16 23:40 99.4 87 17 129/67 99 12/26/16 20:00 96 12/26/16 18:56 99.9 94 19 134/75 94 12/26/16 15:28 100.1 88 18 128/70 96 12/26/16 10:44 99.3 93 20 109/66 94 I/O 12/26/16 12/26/16 12/26/16 12/27/16 12/27/16 12/27/16 07:00 15:00 23:00 07:00 15:00 23:00 Intake Total 350 ml 950 ml Output Total 1500 ml 1400 ml Balance -1150 ml -450 ml Intake IV Total 350 ml 950 ml Output Urine Total 1500 ml 1400 ml Result Diagram: 12/27/16 0649 12/27/16 0649 Imaging Last Impressions Chest X-Ray 12/26/16 0649 Signed Impressions: Service Date/Time: Monday, December 26, 2016 07:11 - CONCLUSION: No acute cardiopulmonary abnormality is identified. Jeffrey Calabrese MD Objective Remarks GENERAL: AOX3, NAD. SKIN: Warm and dry. HEAD: Normocephalic. EYES: No scleral icterus. No injection or drainage. NECK: Supple, trachea midline. No JVD or lymphadenopathy. CARDIOVASCULAR: Regular rate and rhythm without murmurs, gallops, or rubs. RESPIRATORY: Breath sounds equal bilaterally. No accessory muscle use. GASTROINTESTINAL: Abdomen soft, non-tender, nondistended. MUSCULOSKELETAL: No cyanosis, or edema. BACK: Nontender without obvious deformity. No CVA tenderness. Procedures None. A/P Problem List: (1) Atrial flutter with rapid ventricular response ICD Code: I48.92 Status: Acute (2) Alcohol withdrawal delirium, acute, hypoactive ICD Code: F10.231 Status: Acute (3) Dehydration ICD Code: E86.0 Status: Acute (4) UTI (urinary tract infection) ICD Code: N39.0 Status: Acute Assessment and Plan The patient is a 56 year old male with a past medical history which includes ETOH abuse and nephropathy. Patient presents to the [facility] today because he was hallucinating which started about 0500 today. Patient reports he normally drinks 20 beers per day but yesterday only had 10 beers because he had family in town. Patient denies having DTs, seizures or hallucinations in the past when he has stopped drinking. Upon arrival to ER patient EKG revealed Atrial Fibrillation/Flutter with ventricular rate of 122 bpm. Patient was given 1L fluid bolus after which he converted to SR. Atrial fibrillation/flutter with rapid ventricular response dehydration Continuous telemetry Continue home metoprolol succinate [address] Greene evaluated patient. Patient wants to follow up with Dr. Spencer with [facility]. His goes to [facility]. ETOH abuse with withdraw CIWA protocol with thiamine Patient counselled encouraged to abstain- patient reports he does not want to quit drinking at this time Peripheral neuropathy Continue gabapentin home dose UTI with symptoms - Bactrim DS for 7 days. Full code. Deirdre Nunn DO Dec 27, 2016 8:51 am
[2016-12-27] MEDS ORDERED: ASPIRIN EC 81 MG TABEC PO SCH (09:00)
[2016-12-27] MEDS ORDERED: SULFAMETHOXAZOLE-TRIMETHOPRIM DS 800-160 MG TAB PO SCH (09:00)
== END 2016-12-27 10:11 | disposition home or self-care (01) ==
LOC: NEPC 06:15 → NEDA 08:51 → NEPHCDU 10:38 → NEPFCDU 16:06
PROVIDERS: ADMIT Hospitalist; ATTEND Hospitalist
DX: I48.92 Unspecified atrial flutter (principal); F10.231 Alcohol dependence with withdrawal delirium; N39.0 Urinary tract infection, site not specified; E86.0 Dehydration; R55 Syncope and collapse; R53.1 Weakness; R26.81 Unsteadiness on feet; R42 Dizziness and giddiness; R00.2 Palpitations; G62.9 Polyneuropathy, unspecified; R06.02 Shortness of breath; R00.0 Tachycardia, unspecified; I45.10 Unspecified right bundle-branch block; I10 Essential (primary) hypertension; J45.909 Unspecified asthma, uncomplicated; E78.5 Hyperlipidemia, unspecified; E78.00 Pure hypercholesterolemia, unspecified; K21.9 Gastro-esophageal reflux disease without esophagitis; R56.9 Unspecified convulsions; I48.91 Unspecified atrial fibrillation; N28.9 Disorder of kidney and ureter, unspecified; R11.2 Nausea with vomiting, unspecified; F17.220 Nicotine dependence, chewing tobacco, uncomplicated; Z79.899 Other long term (current) drug therapy
CPT/HCPCS: 71010; 80053; 80307; 81001; 82550; 83690; 83735; 83880; 84443; 84484; 85025; 85610; 85730; 87077; 87086; 87186; 93005; 96360; 96361; 99285; G0378; J7030; J3411